=== PATIENT | female | born 1960 | race Two or more races ===

== ENCOUNTER → 2016-05-17 | Outpatient (CLI) | payer BC ==
[~2016-05-17] MED LIST: NKM; RESTORIL15 MG ORAL
--- NOTE | 2016-05-17 16:26 | Diagnostic Imaging Report ---
Indications: Indeterminate calcifications posterior lateral right breast on single view of previous screening mammogram, BI-RADS category zero Technique: Low dose film screen mammograms of left breast performed in craniocaudal, axillary exaggerated craniocaudal, mediolateral oblique, true lateral projections. Compression spot imaging performed in craniocaudal and mediolateral oblique projections. Findings: Comparison: Screening mammogram 10/10/15 No calcifications are demonstrated within the posterior lateral aspect of right breast. Several small benign-appearing skin calcifications are noted in the right axilla. No underlying mass or architectural distortion, suspicious microcalcifications or other abnormalities identified. IMPRESSION: Indeterminate calcifications on previous exam likely represent projection of axillary skin calcifications No evidence of malignancy BI-RADS category 2 Recommendation: Reversion to routine screening mammography
== END | disposition home or self-care (01) ==
LOC: MAMMO 14:02
DX: R92.8 Other abnormal and inconclusive findings on diagnostic imaging of breast (principal)